=== PATIENT | female | born 2000 | race Caucasian/White ===

== ENCOUNTER → 2021-03-26 15:12 | Outpatient (BNVA) | payer OTHER, SELFPAY | PROVIDERS: Visit Provider Physician Assistant | DX: Z13.89 Encounter for screening for other disorder (principal) | CPT/HCPCS: 99203 ==

== ENCOUNTER 2021-07-09 09:32 | Outpatient (REF) | payer OTHER, SELFPAY ==
[2021-07-09 11:22] LABS: COVID-19 Test Negative (Negative)
== END 2021-07-09 09:33 | disposition home or self-care (01) ==
LOC: HO.LAB 09:32
PROVIDERS: Visit Provider Internal Medicine
DX: Z20.822 Contact with and (suspected) exposure to COVID-19 (principal)
CPT/HCPCS: 87635; C9803

== ENCOUNTER 2021-10-09 10:36 | Outpatient (REF) | payer BC, OTHER, SELFPAY ==
[2021-10-09 11:11] LABS: IDNOW Serial# 08D9AD1C
[2021-10-09 11:12] LABS: COVID-19 Test Negative (Negative)
== END 2021-10-09 10:37 | disposition home or self-care (01) ==
LOC: HO.LAB 10:36
PROVIDERS: Visit Provider Internal Medicine
DX: Z20.822 Contact with and (suspected) exposure to COVID-19 (principal)
CPT/HCPCS: 87635; C9803

== ENCOUNTER 2021-11-11 13:56 | Outpatient (REF) | payer BC, OTHER, SELFPAY ==
[2021-11-11 14:24] LABS: COVID-19 Test Positive (Negative)
== END 2021-11-11 13:57 | disposition home or self-care (01) ==
LOC: HO.LAB 13:56
PROVIDERS: Visit Provider Internal Medicine
DX: Z20.822 Contact with and (suspected) exposure to COVID-19 (principal)
CPT/HCPCS: 87635; C9803

== ENCOUNTER 2022-02-23 15:00 | Outpatient (REF) | payer BC, OTHER, SELFPAY ==
[2022-02-23 16:09] LABS: COVID-19 Test Negative (Negative); IDNOW Serial# 16C4AD1C
== END 2022-02-23 15:01 | disposition home or self-care (01) ==
LOC: HO.LAB 15:00
PROVIDERS: Visit Provider Internal Medicine
DX: Z20.822 Contact with and (suspected) exposure to COVID-19 (principal)
CPT/HCPCS: 87635; C9803

== ENCOUNTER 2022-04-03 12:20 | Emergency (ER) | payer BC, OTHER, SELFPAY ==
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
[2022-04-03 12:23] VITALS: BP 120/70; PULSE 92; RESP 18; TEMP 36.2; O2SAT 99; BMI 19.1
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
== END 2022-04-03 13:56 | disposition home or self-care (01) ==
PROVIDERS: Emergency Provider Emergency Medicine; PCP Family Medicine
DX: M26.621 Arthralgia of right temporomandibular joint (principal); R51.9 Headache, unspecified
CPT/HCPCS: 70486; 99282; 99284

== ENCOUNTER 2022-05-29 12:12 | Emergency (ER) | payer BC, OTHER, SELFPAY ==
--- NOTE | ~2022-05-29 | XR_ITS ---
EXAMINATION: XR CHEST CLINICAL INFORMATION: Cough, fever, flu + COMPARISON: None TECHNIQUE: 2 views of the chest were obtained. FINDINGS: No significant abnormality is noted involving the heart, lungs, mediastinum, bony thorax or soft tissues. XR/XR chest 2V IMPRESSION: Unremarkable examination.
--- NOTE | 2022-05-29 13:23 | ED.URI ---
HPI - URI/Sore Throat General Chief Complaint: Upper Respiratory Symptoms <Negin Marquez CNP - Last Filed: 05/29/22 13:29> Stated Complaint: fever, difficulty breathing, joint pain <Negin Marquez CNP - Last Filed: 05/29/22 13:29> Time Seen by Provider: 05/29/22 13:43 <Negin Marquez CNP - Last Filed: 05/29/22 13:29> Source: patient <Ana Laura Lobo NP - Last Filed: 05/29/22 16:18> Mode of arrival: ambulatory <Ana Laura Lobo NP - Last Filed: 05/29/22 16:18> Limitations: no limitations <Ana Laura Lobo NP - Last Filed: 05/29/22 16:18> History of Present Illness HPI Narrative: Negin is a 21 yo female with a PMHx of seizures, migraines, and asthma who presents to the emergency department today for a CC of fever, chills, fatigue, productive cough, shortness of breath, and nausea which started 4 days ago. She has not tried OTC medications for her symptoms. She says she has recently been around friends and coworkers who have been sick but has been vaccinated against both COVID and flu. She is concerned that her symptoms appear to be worsening and mentions that she has had to use her albuterol inhaler more often than not this week. <Ana Laura Lobo NP - Last Filed: 05/29/22 16:18> MD elicited complaint: fever, cough, sore throat and nasal congestion <Ana Laura Lobo NP - Last Filed: 05/29/22 16:18> Pertinent past history: asthma <Ana Laura Lobo NP - Last Filed: 05/29/22 16:18> Onset (ago): day(s) (4) <Ana Laura Lobo NP - Last Filed: 05/29/22 16:18> Consistency: constant <Ana Laura Lobo NP - Last Filed: 05/29/22 16:18> Severity: moderate <Ana Laura Lobo NP - Last Filed: 05/29/22 16:18> Exacerbating factors: nothing <Ana Laura Lobo NP - Last Filed: 05/29/22 16:18> Relieving factors: nothing <Ana Laura Lobo NP - Last Filed: 05/29/22 16:18> Context: sick contacts <Ana Laura Lobo NP - Last Filed: 05/29/22 16:18> Associated symptoms: fever, chills, myalgias, headache, nasal congestion, sore throat, cough, chest pain, shortness of breath and nausea <Ana Laura Lobo NP - Last Filed: 05/29/22 16:18> Treatments prior to arrival: none <Ana Laura Lobo NP - Last Filed: 05/29/22 16:18> Related Data Home Medications: Previous Rx's Medication Instructions Recorded cyclobenzaprine 10 mg tablet 10 mg PO TID PRN muscle spasm #10 04/03/22 tabs ibuprofen 600 mg tablet 600 mg PO Q8H PRN pain #14 tabs 04/03/22 <Negin Marquez CNP - Last Filed: 05/29/22 13:29> Allergies/Adverse Reactions: Allergies Allergy/AdvReac Type Severity Reaction Status Date / Time amoxicillin Allergy Rash Verified 04/03/22 12:22 latex Allergy Rash Verified 04/03/22 12:22 <Negin Marquez CNP - Last Filed: 05/29/22 13:29> Review of Systems Review of Systems: Yes all other systems are reviewed and are negative <Ana Laura Lobo NP - Last Filed: 05/29/22 16:18> Constitutional: Constitutional: Reports no additional constitutional complaints, Reports body ache(s), Reports chills, Reports fever(s), Reports headache(s) and Denies weakness <Ana Laura Lobo NP - Last Filed: 05/29/22 16:18> Eyes: Eyes: Reports no additional eye complaints and Denies change in vision <Ana Laura Lobo NP - Last Filed: 05/29/22 16:18> ENT: Reports system reviewed and no additional complaints, except as documented, Denies dizziness, Reports headache(s), Reports nasal congestion, Denies nasal discharge and Denies neck pain <Ana Laura Lobo NP - Last Filed: 05/29/22 16:18> Cardiovascular: Cardiovascular: Reports no additional cardiovascular complaints, Denies chest pain, Denies leg edema and Reports dyspnea <Ana Laura Lobo NP - Last Filed: 05/29/22 16:18> Respiratory: Respiratory: Reports no additional respiratory complaints, Denies cough and Reports dyspnea <Ana Laura Lobo NP - Last Filed: 05/29/22 16:18> Gastrointestinal: Gastrointestinal: Reports no additional gastrointestinal complaints, Denies abdominal pain, Denies diarrhea, Reports nausea and Denies vomiting <Ana Laura Lobo ASSOCIATE PROFESSOR [employer] AUTOMATION - Last Filed: 05/29/22 16:18> Genitourinary: Genitourinary: Reports no additional female genitourinary complaints and Denies urinary incontinence <Ana Laura Lobo NP - Last Filed: 05/29/22 16:18> Musculoskeletal: Musculoskeletal: Reports no additional musculoskeletal complaints, Denies back pain, Denies arthralgias, Denies joint swelling, Denies neck pain, Denies numbness and Denies tingling <Ana Laura Lobo NP - Last Filed: 05/29/22 16:18> Integumentary/Breasts: Skin/Breast: Reports system reviewed and no additional complaints, except as docu and Denies rash <Ana Laura Lobo NP - Last Filed: 05/29/22 16:18> Neurologic: Reports system reviewed and no additional complaints, except as documented, Denies Abnormal speech present, Denies dizziness, Reports headache(s), Denies numbness, Denies tingling and Denies weakness <Ana Laura Lobo NP - Last Filed: 05/29/22 16:18> [facility] Past Medical History Attestation statement: The following information was validated with the patient. <Ana Laura Lobo NP - Last Filed: 05/29/22 16:18> [facility] Narrative: PMHx:Migraines, Seziures, Asthma SHx: Nasal surgery, appendectomy Social: Social alcohol use, vapes and smokes marijuana occasionally <Ana Laura Lobo NP - Last Filed: 05/29/22 16:18> Source: old records reviewed and nursing notes reviewed <Ana Laura Lboo NP - Last Filed: 05/29/22 16:18> Social History Social History: Social History Advance Directives: No Advance Directives Information Provided: No <Negin Marquez CNP - Last Filed: 05/29/22 13:29> Physical Exam Vital Signs: Vital Signs: Last Vital Signs Temp 98.6 F 05/29/22 15:25 Pulse 95 05/29/22 15:25 Resp 20 05/29/22 15:25 BP 105/57 L 05/29/22 15:25 Pulse Ox 99 05/29/22 15:25 O2 Del Method 05/29/22 15:25 BMI result Body Mass Index 19.1 <Negin Marquez CNP - Last Filed: 05/29/22 13:29> Vital Signs: Last Vital Signs Temp 98.6 F 05/29/22 15:25 Pulse 95 05/29/22 15:25 Resp 20 05/29/22 15:25 BP 105/57 L 05/29/22 15:25 Pulse Ox 99 05/29/22 15:25 O2 Del Method 05/29/22 15:25 BMI result Body Mass Index 19.1 <Ana Laura Lobo NP - Last Filed: 05/29/22 16:18> Const: General: cooperative, healthy appearing, comfortable and no acute distress <Ana Laura Lobo NP - Last Filed: 05/29/22 16:18> Orientation/consciousness: patient oriented x3 <Ana Laura Lobo NP - Last Filed: 05/29/22 16:18> Limitations: no limitations <Ana Laura Lobo NP - Last Filed: 05/29/22 16:18> HEENT: Head: Yes normal to inspection <Ana Laura Lobo NP - Last Filed: 05/29/22 16:18> Ears: hearing grossly normal bilaterally and TM's normal bilaterally <Ana Laura Lobo NP - Last Filed: 05/29/22 16:18> General nose exam: Normal external nose present <Ana Laura Lobo NP - Last Filed: 05/29/22 16:18> Face and sinus: Yes normal facial exam <Ana Laura Lobo NP - Last Filed: 05/29/22 16:18> Mouth: Normal oral and palatal mucosa present <Ana Laura Lobo NP - Last Filed: 05/29/22 16:18> Throat: Yes posterior oropharynx normal, Yes tonsils normal and Yes uvula midline <Ana Laura Lobo NP - Last Filed: 05/29/22 16:18> Eyes: General: appearance normal, both eyes and all related structures <Ana Laura Lobo NP - Last Filed: 05/29/22 16:18> Pupils: Equal, round and reactive pupils present <Ana Laura Lobo NP - Last Filed: 05/29/22 16:18> Neck: Neck: Yes normal visual inspection, Yes full ROM, Yes no lymphadenopathy and Yes no meningeal signs <Ana Laura Lobo NP - Last Filed: 05/29/22 16:18> Chest: Chest palpation & inspection: normal inspection of the chest <Ana Laura Lobo NP - Last Filed: 05/29/22 16:18> Resp: Effort & Inspection: normal respiratory effort <Ana Laura Lobo NP - Last Filed: 05/29/22 16:18> Auscultation: clear to auscultation bilaterally <Ana Laura Lobo NP - Last Filed: 05/29/22 16:18> Cardio: Rate: regular rate <Ana Laura Lobo NP - Last Filed: 05/29/22 16:18> Rhythm: regular rhythm <Ana Laura Lobo NP - Last Filed: 05/29/22 16:18> Peripheral pulses: Peripheral pulses 2+ throughout <Ana Laura Lobo NP - Last Filed: 05/29/22 16:18> GI: Inspection: Yes normal to inspection <Ana Laura Lobo NP - Last Filed: 05/29/22 16:18> Palpation (GI): Soft to palpation and nontender <Ana Laura Lobo NP - Last Filed: 05/29/22 16:18> Auscultation: normal bowel sounds <Ana Laura Lobo NP - Last Filed: 05/29/22 16:18> Back/Spine/Pelvis: Thoracic/Lumbar Spine: thoracic and lumbar spine normal to inspection <Ana Laura Lobo NP - Last Filed: 05/29/22 16:18> Skin: General skin exam: no rashes or lesions noted <Ana Laura Lobo NP - Last Filed: 05/29/22 16:18> Neuro: General: patient oriented x3, no meningeal signs, no focal motor deficits and normal sensation to monofilament <Ana Laura Lobo ASSOCIATE PROFESSOR [employer] AUTOMATION - Last Filed: 05/29/22 16:18> Cranial nerves: Yes Equal, round and reactive pupils present <Ana Laura Lobo NP - Last Filed: 05/29/22 16:18> Cognition (Neuro): normal cognition <Ana Laura Lobo NP - Last Filed: 05/29/22 16:18> Speech: No Abnormal speech present <Ana Laura Lobo NP - Last Filed: 05/29/22 16:18> Gait exam (Neuro): Normal gait present <Ana Laura Lobo NP - Last Filed: 05/29/22 16:18> Motor exam (neuro): 5/5 motor strength present throughout <Ana Laura Lobo NP - Last Filed: 05/29/22 16:18> Extrem: General: Yes normal to inspection, Yes no pedal edema and Yes no calf tenderness <Ana Laura Lobo NP - Last Filed: 05/29/22 16:18> Course Course Course Narrative: RME: Patient is a 21-year-old female with a past medical history of asthma, migraines, seizures. She reports Symptom onset 4 days ago; shortness of breath feels no relief with albuterol inhaler, fever, nausea without vomiting, lack of appetite, body aches. States coworkers are ill with RSV. PE: LSCTA, no apparent distress. Tachycardic, low grade temperature Plan: COVID-19/influenza/RSV testing, ibuprofen <Negin Marquez CNP - Last Filed: 05/29/22 13:29> Positive Influenza Type A swab Unfortunately now >4 days of symptoms so I do not feel that tamiflu would be helpful. CXR negative for PNA. Recommended supportive care. Reviewed worrisome signs/symptoms with patient and when to seek additional care. Comfortable with dicharge home. <Ana Laura Lobo NP - Last Filed: 05/29/22 16:18> Medications Administered Discontinued Medications Generic Name Dose Route Start Last Admin Trade Name Freq PRN Reason Stop Dose Admin Ibuprofen 600 mg 05/29/22 13:28 05/29/22 13:34 Ibuprofen 600 Mg Tablet PO 05/29/22 13:29 600 mg ONCE ONE Administration <Negin Marquez CNP - Last Filed: 05/29/22 13:29> Medications Administered Discontinued Medications Generic Name Dose Route Start Last Admin Trade Name Freq PRN Reason Stop Dose Admin Ibuprofen 600 mg 05/29/22 13:28 05/29/22 13:34 Ibuprofen 600 Mg Tablet PO 05/29/22 13:29 600 mg ONCE ONE Administration <Ana Laura Lobo NP - Last Filed: 05/29/22 16:18> MDM - URI/Sore Throat MDM Narrative Medical decision making narrative: RME: Patient is a 21-year-old female with a past medical history of asthma, migraines, seizures. She reports Symptom onset 4 days ago with shortness of breath. She feels no relief with albuterol inhaler. She also endorses fever, nausea without vomiting, lack of appetite, body aches. States coworkers are ill with RSV. Perc score: 1, due to HR over 100, elevated heart rate likely due to fever and is not concerning for PE, she does not meet any other positive criteria and PE is unremarkable. PE: LSCTA, no apparent distress. Tachycardic, low grade temperature Plan: COVID-19/influenza/RSV testing, ibuprofen <Ana Laura Lobo NP - Last Filed: 05/29/22 16:18> Medical Records Attestation: I reviewed the patient's medical records. <Ana Laura Lobo NP - Last Filed: 05/29/22 16:18> Lab Data Attestation: I reviewed the patient's lab results. <Ana Laura Lobo NP - Last Filed: 05/29/22 16:18> Labs: Lab Results 05/29/22 Range/Units 13:29 Influenza Type A (PCR) POSITIVE A (Negative) Influenza Type B (PCR) NEGATIVE (Negative) RSV RNA Qual (PCR) NEGATIVE (Negative) SARS-CoV-2 RNA (RT-PCR) NEGATIVE (Negative) <Negin Marquez CNP - Last Filed: 05/29/22 13:29> Lab Results 05/29/22 Range/Units 13:29 Influenza Type A (PCR) POSITIVE A (Negative) Influenza Type B (PCR) NEGATIVE (Negative) RSV RNA Qual (PCR) NEGATIVE (Negative) SARS-CoV-2 RNA (RT-PCR) NEGATIVE (Negative) <Ana Laura Lobo NP - Last Filed: 05/29/22 16:18> Imaging Data Chest x-ray: Attestation: I personally reviewed and interpreted this imaging study as follows: <Ana Laura Lobo NP - Last Filed: 05/29/22 16:18> Radiologist's impression: [place] [id number] XRay Report Signed Patient: Negin Brody MR#: [id number] : 2000 Acct:[id number] Age/Sex: 21 / F ADM Date: 05/29/22 Loc: .ED Attending Dr: Ordering Physician: Ana Laura Lobo NP Date of Service: 05/29/22 Procedure(s): XR chest 2V Accession Number(s): [id number] cc: Ana Laura Lobo NP~ EXAMINATION: XR CHEST CLINICAL INFORMATION: Cough, fever, flu + COMPARISON: None TECHNIQUE: 2 views of the chest were obtained. FINDINGS: No significant abnormality is noted involving the heart, lungs, mediastinum, bony thorax or soft tissues. XR/XR chest 2V IMPRESSION: Unremarkable examination. <Ana Laura Lobo NP - Last Filed: 05/29/22 16:18> Discharge Plan Discharge Clinical Impression: Influenza <Negin Marquez CNP - Last Filed: 05/29/22 13:29> Patient Disposition: Home, Self-Care <Negin Marquez CNP - Last Filed: 05/29/22 13:29> Instructions: Influenza (ED) <Negin Marquez CNP - Last Filed: 05/29/22 13:29> Additional Instructions: Continue inhaler Motrin or tylenol as needed X-ray shows no pneumonia. <Negin Marquez CNP - Last Filed: 05/29/22 13:29> Prescriptions: No Action cyclobenzaprine 10 mg tablet 10 mg PO TID PRN (Reason: muscle spasm) Qty: 10 0RF ibuprofen 600 mg tablet 600 mg PO Q8H PRN (Reason: pain) Qty: 14 0RF <Negin Marquez CNP - Last Filed: 05/29/22 13:29> Referrals: Julián Diaz MD [Primary Care Provider] - 1 week <Negin Marquez CNP - Last Filed: 05/29/22 13:29> Stand Alone Forms: Work/School Release <Negin Marquez CNP - Last Filed: 05/29/22 13:29>
[2022-05-29 13:25] VITALS: BP 111/64; PULSE 115; RESP 18; TEMP 37.9; O2SAT 98; BMI 19.1
[2022-05-29] MEDS: Ibuprofen 600 MG TABLET PO (13:34)
[2022-05-29 14:31] LABS: Influenza A PCR POSITIVE (Negative); Influenza B PCR NEGATIVE (Negative); Resp Syncy Virus RNA Qual PCR NEGATIVE (Negative); SARS COV2 PCR INHOUSE NEGATIVE (Negative)
[2022-05-29 14:53] VITALS: BP 94/55; PULSE 102; RESP 16; TEMP 37.1; O2SAT 98
[2022-05-29 15:25] VITALS: BP 105/57; PULSE 95; RESP 20; TEMP 37; O2SAT 99
== END 2022-05-29 15:45 | disposition home or self-care (01) ==
PROVIDERS: Nurse Practitioner Family; Emergency Provider Emergency Medicine Emergency Medical Services; PCP Family Medicine
DX: J11.1 Influenza due to unidentified influenza virus with other respiratory manifestations (principal); R50.9 Fever, unspecified; Z20.822 Contact with and (suspected) exposure to COVID-19
CPT/HCPCS: 0241U; 71046; 99283

== ENCOUNTER 2022-07-08 11:12 | Outpatient (REF) | payer BC, OTHER, SELFPAY ==
[2022-07-10 18:34] LABS: TS Negative Control Passed; TS Panel A 0; TS Panel B 0; TS Positive Control Passed; TSpotTB Negative (Negative)
== END 2022-07-08 11:13 | disposition home or self-care (01) ==
LOC: HO.LAB 11:12
PROVIDERS: PCP Family Medicine; Visit Provider Family Medicine
DX: Z02.1 Encounter for pre-employment examination (principal); Z11.1 Encounter for screening for respiratory tuberculosis
CPT/HCPCS: 36415; 86481

== ENCOUNTER 2022-08-19 08:04 | Outpatient (REF) | payer BC, OTHER, SELFPAY ==
[2022-08-19 08:17] LABS: MANUAL DIFF FLAG NO
[2022-08-19 08:49] LABS: Basophils Absolute Auto 0.1 X10*3/uL (0.0-0.2); Basophils Percent Auto 1.2 % (0-2); Eosinophils Absolute Auto 0.1 X10*3/uL (0.0-0.4); Eosinophils Percent Auto 1.9 % (0-4); Hematocrit 42.3 % (37.0-47.0); Hemoglobin 13.9 g/dl (12.0-16.0); Imm Gran Abs Auto 0.03 X10*3/uL (0.00-0.03); Imm Gran Pct Auto 0.4 % (0.0-0.4); Lymphocytes Absolute Auto 2.2 X10*3/uL (1.2-4.9); Lymphocytes Percent Auto 32.6 % (20-40); Mean Corpuscular HGB Conc 32.9 g/dl (31.0-35.0); Mean Corpuscular Hemoglobin 29.1 pg (27.0-33.0); Mean Corpuscular Volume 88.7 fL (80.0-98.0); Mean Platelet Volume 10.1 fL (9.4-12.3); Monocytes Absolute Auto 0.4 X10*3/uL (0.1-1.2); Monocytes Percent Auto 6.3 % (2-11); Neutrophils Absolute Auto 3.9 x10*3/uL (2.0-8.3); Neutrophils Percent Auto 57.6 % (45-73); Platelet Count 241 X10*3/uL (160-400); Red Blood Count 4.77 X10*6/uL (4.20-5.50); Red Cell Distribution Width 11.7 % (11.0-16.0); White Blood Count 6.7 X10*3/uL (4.8-10.8)
[2022-08-19 09:26] LABS: Alanine Aminotransferase 13 U/L (0-31); Anion Gap 11 (12-20); Aspartate Amino Transferase 15 U/L (5-31); Blood Urea Nitrogen 10 mg/dL (9-16); Carbon Dioxide 27 mmol/L (22-29); Chloride 106 mmol/L (96-108); Estimated Glomerular Filt Rate > 60; Potassium 4.4 mmol/L (3.3-5.1); Sodium 140 mmol/L (135-145)
[2022-08-19 09:44] LABS: Free T4 (Free Thyroxine) 0.84 ng/dL (0.71-1.85)
== END 2022-08-19 08:05 | disposition home or self-care (01) ==
LOC: HO.LAB 08:04
PROVIDERS: PCP Family Medicine; Visit Provider Family Medicine
DX: E03.9 Hypothyroidism, unspecified (principal)
CPT/HCPCS: 36415; 80051; 82565; 84439; 84450; 84460; 84520; 85025

== ENCOUNTER 2022-08-31 07:19 | Inpatient (IN) | payer BC, OTHER, SELFPAY ==
--- NOTE | ~2022-08-31 | US_ITS ---
EXAMINATION: US PELVIS CLINICAL INFORMATION: Ovarian cysts with free fluid COMPARISON: CT scan performed earlier today TECHNIQUE: Ultrasound of the pelvis is performed using both transabdominal and transvaginal transducers along with Doppler. Transvaginal imaging is performed due to inadequate visualization transabdominally. FINDINGS: Uterus: The uterus is anteverted and measures 6.8 x 2.7 x 4.6 cm. The double wall endometrial thickness is 0.3 mm. The uterus is smooth in contour and has normal myometrial echogenicity. No visible fibroid. Within the endometrial canal, an IUD is present in normal position Adnexa: Both ovaries are visualized. There is normal color flow to the adnexa. There is no ovarian torsion. Free fluid is present in the pelvis similar to that noted on the CT scan Right ovary measures 3.5 x 1.8 x 2.6 cm. Normal follicular cysts are present Left ovary measures 3.5 x 1.7 x 2.4 cm. Normal follicular cysts are present US/US pelvic and transvaginal IMPRESSION: 1. Normal-appearing uterus with IUD in normal position. 2. Free fluid is present in the pelvis similar to that noted on the CT scan. 3. No evidence of ovarian torsion.
--- NOTE | ~2022-08-31 | CT_ITS ---
EXAMINATION: CT ABDOMEN AND PELVIS WITH CONTRAST CLINICAL INFORMATION: Lower abdominal pain. COMPARISON: No similar priors. TECHNIQUE: Multidetector volumetric images were obtained from the superior aspect of the liver through the pubic symphysis following administration 85 mL of Omnipaque 350 intravenous contrast. Sagittal and coronal reformatted images were obtained on the technologist's workstation. Oral contrast: No This CT examination was performed using dose optimization techniques as appropriate, variously including the following: *Automated exposure control *Adjustment of mA and/or kV according to patient size (this includes techniques or standardized protocols for targeted exams where dose is matched to indication/reason for exam; i.e. extremities or head) *Use of iterative reconstruction technique DLP: 319 mGy-cm FINDINGS: LUNG BASES: There is a 4 mm pleural-based nodule in the left lower lobe (4:58 post (. No focal consolidation or pleural effusion. LIVER, GALLBLADDER, AND BILIARY TREE: The liver is normal in size, shape, and attenuation. No focal hepatic lesion or biliary ductal dilatation is present. The gallbladder is unremarkable with no evidence of radiopaque gallstones, gallbladder wall thickening, or obvious pericholecystic inflammatory changes. PANCREAS: Unremarkable. SPLEEN: Unremarkable. ADRENAL GLANDS: Unremarkable. KIDNEYS AND URETERS: The kidneys are normal in size, shape, and attenuation. No hydronephrosis, hydroureter, or calculi seen. No perinephric stranding. BLADDER: Unremarkable. GASTROINTESTINAL TRACT: The stomach and the small bowel are nondilated. There is colonic wall thickening involving the descending and sigmoid colon with a focal intussusception versus large stagnated stool ball in the distal descending colon measuring approximately 5 cm (5:22). There is moderate colonic stool content throughout the colon. There is small to moderate volume of free fluid in the abdomen or pelvis. ABDOMINAL WALL: No significant hernia is appreciated. LYMPH NODES: Evaluation is limited due to paucity of abdominal fat. No bulky lymphadenopathy noted. VASCULAR: Abdominal aorta is of normal diameter. Main portal vein is patent. PELVIC VISCERA: IUD centered in the endometrial canal. OSSEOUS STRUCTURES: No acute or aggressive appearing osseous abnormalities. CT/CT abdomen pelvis w IV con IMPRESSION: Colonic wall thickening involving the descending and sigmoid colon with pericolonic inflammatory changes and small to moderate volume of free fluid, most suggestive of acute colitis. In the distal descending colon there is a focal likely transient intussusception versus large stool ball, attention on follow-up recommended. Incidentally noted 4 mm pleural-based nodule in the left lower lobe of uncertain significance in a patient of this age, possibly related with a pulmonary lymph node. In patients younger than age 35, standard Fleischner Society recommendations for incidental pulmonary nodule follow-up do not apply as nodules in this age group are most likely to be infectious/inflammatory. Recommend clinical correlation with any risk factors to assess if follow-up of this nodule is clinically warranted. This result was discussed with Oziel Santamaria at 08/31/2022 3:22 PM and it was ascertained that the content of the report was understood at the time of direct communication.
[2022-08-31 07:33] VITALS: BP 127/85; PULSE 82; RESP 18; TEMP 36.8; O2SAT 100
[2022-08-31 07:34] VITALS: BMI 19.1
--- NOTE | 2022-08-31 08:13 | ED.ABDPAIN ---
HPI - Abdominal Pain General Chief Complaint: Abdominal Pain Stated Complaint: abd pain Time Seen by Provider: 08/31/22 07:50 Source: patient Limitations: no limitations History of Present Illness HPI narrative: Patient describes 2 days of nausea vomiting and diarrhea. Last episode of vomiting and diarrhea both this morning. The diarrhea is watery and frequent. No prior history of similar issues. No sick contacts in the house that she is aware of. Some chills. Abdominal pain which she describes as intermittent severe cramping. No urinary symptoms. No blood in the emesis or the stool. Related Data Previous Rx's Medication Instructions Recorded cyclobenzaprine 10 mg tablet 10 mg PO TID PRN muscle spasm #10 04/03/22 tabs ibuprofen 600 mg tablet 600 mg PO Q8H PRN pain #14 tabs 04/03/22 ondansetron 4 mg disintegrating 4 mg PO Q8H PRN nausea and 08/31/22 tablet vomiting #10 tabs Allergies Allergy/AdvReac Type Severity Reaction Status Date / Time amoxicillin Allergy Rash Verified 04/03/22 12:22 latex Allergy Rash Verified 04/03/22 12:22 Review of Systems Comments: Chills Comments: No chest pain Comments: No respiratory symptoms Comments: Pain nausea vomiting diarrhea as described Comments: No rash Comments: No focal weakness PMFSH Social History Social History Alcohol intake: never Smoked in Last 30 Days: No Use of substances other than those prescribed or required for medical reasons: Yes Substance Use Type: Marijuana Advance Directives: No Advance Directives Information Provided: No Physical Exam ED Vital Signs: Vital Signs - 24 hr 08/31/22 07:33 08/31/22 08:47 Temperature 98.2 F 98.5 F Pulse Rate 82 63 Respiratory Rate 18 19 Blood Pressure 127/85 110/70 Pulse Oximetry 100 100 Oxygen Delivery Method Room Air Room Air BMI result Body Mass Index 19.1 Const Other: Awake alert. No acute distress. HENMT Other: Mucosa dry Resp Other: Clear and equal bilaterally Cardio Other: Normal GI Other: Soft. Tenderness mostly lower abdomen. No guarding or rebound. Normal bowel sounds. Nondistended. Skin Other: Warm pink and dry Medical Decision Making Medical Decision Making MDM Narrative: Patient with abdominal pain in the setting of nausea vomiting and diarrhea. Differential would include pancreatitis, hepatitis, gastritis, colitis. She appears clinically dehydrated as well. Likely gastroenteritis. Will start with IV normal saline and Toradol and Zofran. Will reassess after lab work is back. CT scan if not improving or labs are abnormal. 10:54. Patient is feeling better and tolerating p.o. liquids without difficulty. Stable for discharge home with a final diagnosis of gastroenteritis and dehydration Lab Data 08/31/22 08:21 08/31/22 08:21 Labs: Lab Results 08/31/22 08/31/22 08/31/22 Range/Units 07:38 07:38 08:21 WBC 9.4 (4.8-10.8) X10*3/uL RBC 5.44 (4.20-5.50) X10*6/uL Hgb 16.4 H (12.0-16.0) g/dl Hct 48.2 H (37.0-47.0) % MCV 88.6 (80.0-98.0) fL MCH 30.1 (27.0-33.0) pg MCHC 34.0 (31.0-35.0) g/dl RDW 11.6 (11.0-16.0) % Plt Count 225 (160-400) X10*3/uL MPV 10.3 (9.4-12.3) fL Immature Gran % (Auto) 0.3 (0.0-0.4) % Neut % (Auto) 78.9 H (45-73) % Lymph % (Auto) 14.8 L (20-40) % [place] % (Auto) 4.2 (2-11) % Eos % (Auto) 1.4 (0-4) % Baso % (Auto) 0.4 (0-2) % Lymph # (Auto) 1.4 (1.2-4.9) X10*3/uL [place] # (Auto) 0.4 (0.1-1.2) X10*3/uL Eos # (Auto) 0.1 (0.0-0.4) X10*3/uL Baso # (Auto) 0.0 (0.0-0.2) X10*3/uL Abs Immat Gran (auto) 0.03 (0.00-0.03) X10*3/uL Absolute Neuts (auto) 7.4 (2.0-8.3) x10*3/uL Absolute Nucleated RBC 0.000 (0.0-0.012) X10*3/uL Nucleated RBC % (auto) 0.0 (0.0-0.2) /100WBC Sodium (135-145) mmol/L Potassium (3.3-5.1) mmol/L Chloride (96-108) mmol/L Carbon Dioxide (22-29) mmol/L Anion Gap (12-20) BUN (9-16) mg/dL Creatinine (0.5-1.4) mg/dL Estim Creat Clear Calc Estimated GFR Random Glucose (60-115) mg/dL Calcium (8.4-10.2) mg/dL Total Bilirubin (0.0-1.0) mg/dL AST (5-31) U/L ALT (0-31) U/L Alkaline Phosphatase (39-117) U/L Total Protein (6.5-8.0) g/dL Albumin (3.5-5.0) g/dL COVID-19 (DOTTY) Negative (Negative) COVID-19 Clin Com See Note Influenza Type A (MARCELO) Negative (Negative) Influenza Type B (MARCELO) Negative (Negative) Influenza A & B Note See Note 08/31/22 Range/Units 08:21 WBC (4.8-10.8) X10*3/uL RBC (4.20-5.50) X10*6/uL Hgb (12.0-16.0) g/dl Hct (37.0-47.0) % MCV (80.0-98.0) fL MCH (27.0-33.0) pg MCHC (31.0-35.0) g/dl RDW (11.0-16.0) % Plt Count (160-400) X10*3/uL MPV (9.4-12.3) fL Immature Gran % (Auto) (0.0-0.4) % Neut % (Auto) (45-73) % Lymph % (Auto) (20-40) % [place] % (Auto) (2-11) % Eos % (Auto) (0-4) % Baso % (Auto) (0-2) % Lymph # (Auto) (1.2-4.9) X10*3/uL [place] # (Auto) (0.1-1.2) X10*3/uL Eos # (Auto) (0.0-0.4) X10*3/uL Baso # (Auto) (0.0-0.2) X10*3/uL Abs Immat Gran (auto) (0.00-0.03) X10*3/uL Absolute Neuts (auto) (2.0-8.3) x10*3/uL Absolute Nucleated RBC (0.0-0.012) X10*3/uL Nucleated RBC % (auto) (0.0-0.2) /100WBC Sodium 142 (135-145) mmol/L Potassium 4.0 (3.3-5.1) mmol/L Chloride 108 (96-108) mmol/L Carbon Dioxide 30 H (22-29) mmol/L Anion Gap 8 L (12-20) BUN 10 (9-16) mg/dL Creatinine 0.80 (0.5-1.4) mg/dL Estim Creat Clear Calc 89.3 Estimated GFR > 60 Random Glucose 97 (60-115) mg/dL Calcium 9.3 (8.4-10.2) mg/dL Total Bilirubin 0.9 (0.0-1.0) mg/dL AST 12 (5-31) U/L ALT 10 (0-31) U/L Alkaline Phosphatase 49 (39-117) U/L Total Protein 6.8 (6.5-8.0) g/dL Albumin 4.2 (3.5-5.0) g/dL COVID-19 (DOTTY) (Negative) COVID-19 Clin Com Influenza Type A (MARCELO) (Negative) Influenza Type B (MARCELO) (Negative) Influenza A & B Note Medications Administered Discontinued Medications Generic Name Dose Route Start Last Admin Trade Name Freq PRN Reason Stop Dose Admin Sodium Chloride 1,000 mls @ 999 mls/hr 08/31/22 08:15 08/31/22 10:08 Ns IV 08/31/22 09:15 Infused .Q1H1M KOFFI Infusion Ketorolac Tromethamine 30 mg 08/31/22 08:07 08/31/22 08:26 Ketorolac Tromethamine 15 Mg/Ml Vial IVPUSH 08/31/22 08:08 30 mg ONCE ONE Administration Lorazepam 1 mg 08/31/22 09:06 08/31/22 09:22 Lorazepam 2 Mg/Ml Vial IVPUSH 08/31/22 09:07 1 mg ONCE ONE Administration Ondansetron HCl 4 mg 08/31/22 08:07 08/31/22 08:26 Ondansetron Hcl 4 Mg/2 Ml Vial IVPUSH 08/31/22 08:08 4 mg ONCE ONE Administration Discharge Plan Discharge Clinical Impression: Gastroenteritis, Acute dehydration Patient Disposition: Home, Self-Care Instructions: Dehydration (ED), Gastroenteritis (ED) Prescriptions: New ondansetron 4 mg tablet,disintegrating 4 mg PO Q8H PRN (Reason: nausea and vomiting) Qty: 10 0RF No Action cyclobenzaprine 10 mg tablet 10 mg PO TID PRN (Reason: muscle spasm) Qty: 10 0RF ibuprofen 600 mg tablet 600 mg PO Q8H PRN (Reason: pain) Qty: 14 0RF
[2022-08-31 08:15] LABS: COVID-19 Test Negative (Negative); IDNOW Serial# 16C4AD1C; IDNOW Serial# 9DB6401D; Influenza A Negative (Negative); Influenza B2 Negative (Negative)
[2022-08-31] MEDS: 0.9 % Sodium Chloride 1,000 ML 999 ML IV (08:25)
[2022-08-31 08:26] LABS: MANUAL DIFF FLAG NO
[2022-08-31] MEDS: ondansetron HCL 4 MG/2 ML VIAL IVPUSH (08:26)
[2022-08-31] MEDS: Ketorolac Tromethamine 15 MG/ML VIAL 30 MG IVPUSH (08:26)
[2022-08-31 08:36] LABS: Basophils Percent Auto 0.4 % (0-2); Eosinophils Absolute Auto 0.1 X10*3/uL (0.0-0.4); Eosinophils Percent Auto 1.4 % (0-4); Hematocrit 48.2 % (37.0-47.0); Hemoglobin 16.4 g/dl (12.0-16.0); Imm Gran Abs Auto 0.03 X10*3/uL (0.00-0.03); Imm Gran Pct Auto 0.3 % (0.0-0.4); Lymphocytes Absolute Auto 1.4 X10*3/uL (1.2-4.9); Lymphocytes Percent Auto 14.8 % (20-40); Mean Corpuscular Hemoglobin 30.1 pg (27.0-33.0); Mean Corpuscular Volume 88.6 fL (80.0-98.0); Mean Platelet Volume 10.3 fL (9.4-12.3); Monocytes Absolute Auto 0.4 X10*3/uL (0.1-1.2); Monocytes Percent Auto 4.2 % (2-11); Neutrophils Absolute Auto 7.4 x10*3/uL (2.0-8.3); Neutrophils Percent Auto 78.9 % (45-73); Platelet Count 225 X10*3/uL (160-400); Red Blood Count 5.44 X10*6/uL (4.20-5.50); Red Cell Distribution Width 11.6 % (11.0-16.0); White Blood Count 9.4 X10*3/uL (4.8-10.8)
[2022-08-31 08:43] LABS: Alanine Aminotransferase 10 U/L (0-31); Albumin Level 4.2 g/dL (3.5-5.0); Alkaline Phosphatase 49 U/L (39-117); Anion Gap 8 (12-20); Aspartate Amino Transferase 12 U/L (5-31); Bilirubin Total 0.9 mg/dL (0.0-1.0); Blood Urea Nitrogen 10 mg/dL (9-16); Calcium 9.3 mg/dL (8.4-10.2); Carbon Dioxide 30 mmol/L (22-29); Chloride 108 mmol/L (96-108); Creatinine Clr Calc Pharmacy 89.3; Estimated Glomerular Filt Rate > 60; Glucose Random 97 mg/dL (60-115); Sodium 142 mmol/L (135-145); Total Protein 6.8 g/dL (6.5-8.0)
[2022-08-31 08:47] VITALS: BP 110/70; PULSE 63; RESP 19; TEMP 36.9; O2SAT 100
[2022-08-31] MEDS: LORazepam 2 MG/ML VIAL 1 MG IVPUSH (09:22)
--- NOTE | 2022-08-31 10:11 | PC.NURSE ---
PO trial started. will observe for N/V
[2022-08-31 12:53] LABS: HCG Quantitative < 2 mIU/mL
[2022-08-31] MEDS: iohexoL 350 MG/ML 100 ML INFUS..BTL IV (13:09)
--- NOTE | 2022-08-31 16:24 | PC.NURSE ---
able to keep food and drink down. denies nausea
[2022-08-31] MEDS: LORazepam 2 MG/ML VIAL 0.5 MG IVPUSH (17:22)
--- NOTE | 2022-08-31 18:42 | PM.HPGS ---
History of Present Illness History of Present Illness Date of Service: 09/01/22 Chief complaint: Abdominal pain Narrative: Negin Brody is a 22 year old female with severe anxiety, here in the ER because of lower abdominal pain. She says this started about 2 days ago. she describes is constant. She says that this is both on the left pelvic area and right pelvic area. She also says that she had some nausea and describes some her stools. She says she passes flatus as well. She denies any previous similar symptoms in the past. She denies any fever or chills. She denies any urinary complaints. Review of Systems Constitutional: Constitutional: Denies chills and Denies fever(s) Cardiovascular: Cardiovascular: Denies chest pain, Denies dyspnea and Denies dyspnea on exertion Respiratory: Respiratory: Denies cough, Denies dyspnea and Denies dyspnea on exertion Gastrointestinal: Gastrointestinal: Denies hematochezia and Denies change in bowel habits Genitourinary: Genitourinary: Denies hematuria Musculoskeletal: Musculoskeletal: Denies back pain and Denies limited range of motion Neurologic: Denies focal weakness and Denies convulsions Psychiatric: Psychiatric: Reports anxiety, Denies depression and Denies mood swings PMFSH Past Medical History Medical History (Updated 09/01/22 @ 15:57 by Romaine Fuentes MD) Abdominal pain Anxiety Migraine Seizure disorder Social History Social History Alcohol intake: never Smoked in Last 30 Days: No Use of substances other than those prescribed or required for medical reasons: Yes Substance Use Type: Marijuana Advance Directives: No Advance Directives Information Provided: No service: No Meds Allergies Allergy/AdvReac Type Severity Reaction Status Date / Time amoxicillin Allergy Rash Verified 04/03/22 12:22 latex Allergy Rash Verified 04/03/22 12:22 Home Medications Medication Instructions Recorded Confirmed Last Taken Type albuterol sulfate 90 mcg/actuation 2 puff inhalation Q4-6H PRN 08/31/22 08/31/22 Unknown History aerosol inhaler (ProAir HFA) Shortness Of Breath Or Wheezing amitriptyline 25 mg tablet 1 tab PO BEDTIME 08/31/22 08/31/22 Unknown History bupropion HCl 150 mg 24 hr tablet, 1 tab PO DAILY 08/31/22 08/31/22 Unknown History extended release diazepam 2 mg tablet 2 mg PO DAILY PRN Anxiety 08/31/22 08/31/22 Unknown History glycopyrrolate 2 mg tablet 1 tab PO QAM 08/31/22 08/31/22 Unknown History lamotrigine 300 mg tablet,extended 1 tab PO BID 08/31/22 08/31/22 Unknown History release 24 hr verapamil 180 mg tablet,extended 1 tab PO BEDTIME 08/31/22 08/31/22 Unknown History release Physical Exam Vital Signs: Vital Signs: Last Vital Signs Temp 98.5 F 08/31/22 08:47 Pulse 63 08/31/22 08:47 Resp 19 08/31/22 08:47 BP 110/70 08/31/22 08:47 Pulse Ox 100 08/31/22 08:47 O2 Del Method 08/31/22 08:47 BMI result Body Mass Index 19.1 Const: Other: appears very anxious and emotional, crying General: comfortable and no acute distress Orientation/consciousness: patient oriented x3 Neck: Neck: Yes no lymphadenopathy Resp: Auscultation: clear to auscultation bilaterally Cardio: Rhythm: regular rhythm GI: Other: tender mostly on both pelvic areas, no guarding rebound, no distension Inspection: No distended Palpation (GI): Soft to palpation, nontender and no guarding Neuro: General: patient oriented x3 Results Results Labs: Short CBC 08/31/22 Range/Units 08:21 WBC 9.4 (4.8-10.8) X10*3/uL Hgb 16.4 H (12.0-16.0) g/dl Hct 48.2 H (37.0-47.0) % Plt Count 225 (160-400) X10*3/uL BMP 08/31/22 08:21 Sodium 142 Potassium 4.0 Chloride 108 Carbon Dioxide 30 H BUN 10 Creatinine 0.80 Calcium 9.3 Liver Function 08/31/22 Range/Units 08:21 Total Bilirubin 0.9 (0.0-1.0) mg/dL AST 12 (5-31) U/L ALT 10 (0-31) U/L Alkaline Phosphatase 49 (39-117) U/L Albumin 4.2 (3.5-5.0) g/dL Additional studies: Laboratory Results WBC 9.4 X10*3/uL (4.8-10.8) 08/31/22 08:21 RBC 5.44 X10*6/uL (4.20-5.50) 08/31/22 08:21 Hgb 16.4 g/dl (12.0-16.0) H 08/31/22 08:21 Hct 48.2 % (37.0-47.0) H 08/31/22 08:21 MCV 88.6 fL (80.0-98.0) 08/31/22 08:21 MCH 30.1 pg (27.0-33.0) 08/31/22 08:21 MCHC 34.0 g/dl (31.0-35.0) 08/31/22 08:21 RDW 11.6 % (11.0-16.0) 08/31/22 08:21 Plt Count 225 X10*3/uL (160-400) 08/31/22 08:21 MPV 10.3 fL (9.4-12.3) 08/31/22 08:21 Immature Gran % (Auto) 0.3 % (0.0-0.4) 08/31/22 08:21 Neut % (Auto) 78.9 % (45-73) H 08/31/22 08:21 Lymph % (Auto) 14.8 % (20-40) L 08/31/22 08:21 [place] % (Auto) 4.2 % (2-11) 08/31/22 08:21 Eos % (Auto) 1.4 % (0-4) 08/31/22 08:21 Baso % (Auto) 0.4 % (0-2) 08/31/22 08:21 Lymph # (Auto) 1.4 X10*3/uL (1.2-4.9) 08/31/22 08:21 [place] # (Auto) 0.4 X10*3/uL (0.1-1.2) 08/31/22 08:21 Eos # (Auto) 0.1 X10*3/uL (0.0-0.4) 08/31/22 08:21 Baso # (Auto) 0.0 X10*3/uL (0.0-0.2) 08/31/22 08:21 Abs Immat Gran (auto) 0.03 X10*3/uL (0.00-0.03) 08/31/22 08:21 Absolute Neuts (auto) 7.4 x10*3/uL (2.0-8.3) 08/31/22 08:21 Absolute Nucleated RBC 0.000 X10*3/uL (0.0-0.012) 08/31/22 08:21 Nucleated RBC % (auto) 0.0 /100WBC (0.0-0.2) 08/31/22 08:21 Sodium 142 mmol/L (135-145) 08/31/22 08:21 Potassium 4.0 mmol/L (3.3-5.1) 08/31/22 08:21 Chloride 108 mmol/L (96-108) 08/31/22 08:21 Carbon Dioxide 30 mmol/L (22-29) H 08/31/22 08:21 Anion Gap 8 (12-20) L 08/31/22 08:21 BUN 10 mg/dL (9-16) 08/31/22 08:21 Creatinine 0.80 mg/dL (0.5-1.4) 08/31/22 08:21 Estim Creat Clear Calc 89.3 08/31/22 08:21 Estimated GFR > 60 08/31/22 08:21 Random Glucose 97 mg/dL (60-115) 08/31/22 08:21 Calcium 9.3 mg/dL (8.4-10.2) 08/31/22 08:21 Total Bilirubin 0.9 mg/dL (0.0-1.0) 08/31/22 08:21 AST 12 U/L (5-31) 08/31/22 08:21 ALT 10 U/L (0-31) 08/31/22 08:21 Alkaline Phosphatase 49 U/L (39-117) 08/31/22 08:21 Total Protein 6.8 g/dL (6.5-8.0) 08/31/22 08:21 Albumin 4.2 g/dL (3.5-5.0) 08/31/22 08:21 Beta HCG, Quant < 2 mIU/mL 08/31/22 08:21 COVID-19 (DOTTY) Negative (Negative) 08/31/22 07:38 COVID-19 Clin Com See Note 02/27/23 07:38 Influenza Type A (MARCELO) Negative (Negative) 08/31/22 07:38 Influenza Type B (MARCELO) Negative (Negative) 08/31/22 07:38 Influenza A & B Note See Note 08/31/22 07:38 Impressions Abdomen/Pelvis CT 08/31/22 13:18 IMPRESSION: Colonic wall thickening involving the descending and sigmoid colon with pericolonic inflammatory changes and small to moderate volume of free fluid, most suggestive of acute colitis. In the distal descending colon there is a focal likely transient intussusception versus large stool ball, attention on follow-up recommended. Incidentally noted 4 mm pleural-based nodule in the left lower lobe of uncertain significance in a patient of this age, possibly related with a pulmonary lymph node. In patients younger than age 35, standard Fleischner Society recommendations for incidental pulmonary nodule follow-up do not apply as nodules in this age group are most likely to be infectious/inflammatory. Recommend clinical correlation with any risk factors to assess if follow-up of this nodule is clinically warranted. This result was discussed with Oziel Santamaria at 08/31/2022 3:22 PM and it was ascertained that the content of the report was understood at the time of direct communication. Assessment and Plan (1) Abdominal pain: Status: Acute She describes abdominal pain, mostly on both lower pelvic areas. She also says she has some water stools as well as some nausea. I have reviewed her CAT scan with the radiologist. She has a lot of stools in the colon. Official report was read as possible intussusception but when reviewed with the radiologist, and this is unlikely. There is no evidence of any obstruction. The patient has a benign exam although does have some free fluid. There is also question of left sided colitis based on some mild thickening of the wall. I am going to admit her therefore so that she can be monitored in view of the above official report. She was extremely anxious while in the ER as well. I will put her back on all her anxiety medications well is her seizure medications. She will be kept on clear liquids. I have ordered for a pelvic ultrasound as well in the ER as there is suspicion of adnexal says with possible rupture causing this pelvic fluid. Otherwise, there is no other inflammatory process noted. Her basic labs ar unremarkable. Sh says her last seizure episode was maybe over 5 years ago. I explained to her the above plan. Time Spent With Patient Time: Total time managing care of this patient today ____ minutes. Quality Stroke Does the patient have a stroke diagnosis?: No VTE Prior VTE?: No VTE Risk Level:: Medical - low VTE Device Contraindication: Treatment Not Indicated VTE Drug Contraindication: Treatment Not Indicated Procedures Date of Service Date of Service: 08/31/22
[2022-08-31] MEDS: 0.9 % Sodium Chloride 1,000 ML 80 ML IVCONT (19:55)
--- NOTE | 2022-08-31 20:04 | PHA.MEDREC ---
Pharmacy Consult ? Medication Reconciliation Pharmacy has completed the medication reconciliation. Patient is good historian and knows medications she is on. Med rec completed off of claim history and conversation at patient bedside.
[2022-08-31] MEDS: Amitriptyline HCl 25 MG TABLET PO (22:09)
[2022-08-31] MEDS: Morphine Sulfate 4 MG/ML CARTRIDGE 2 MG IVPUSH (22:13)
--- NOTE | 2022-08-31 22:14 | PC.NURSE ---
Medicated per sep, Notified Harpreet Bailon
[2022-08-31 23:23] VITALS: BP 97/55; PULSE 67; RESP 15; O2SAT 97
[2022-08-31] MEDS: VerapamiL HCL SR 180 MG TABLET.ER PO (23:47)
[2022-09-01] MEDS: 0.9 % Sodium Chloride Flush 3 ML SYRINGE IVFLUSH (01:06)
--- NOTE | 2022-09-01 02:03 | PC.NURSE ---
Pt sleeping at the bedside in no apparent distress. Breaths are even and unlabored with equal chest rises. Will continue to monitor.
[2022-09-01 06:51] LABS: Hematocrit 38.5 % (37.0-47.0); Hemoglobin 13.3 g/dl (12.0-16.0); Mean Corpuscular HGB Conc 34.5 g/dl (31.0-35.0); Mean Corpuscular Volume 86.7 fL (80.0-98.0); Mean Platelet Volume 9.5 fL (9.4-12.3); Platelet Count 178 X10*3/uL (160-400); Red Blood Count 4.44 X10*6/uL (4.20-5.50); Red Cell Distribution Width 11.6 % (11.0-16.0); White Blood Count 7.2 X10*3/uL (4.8-10.8)
[2022-09-01 07:20] LABS: Anion Gap 10 (12-20); Blood Urea Nitrogen 7 mg/dL (9-16); Carbon Dioxide 24 mmol/L (22-29); Chloride 112 mmol/L (96-108); Creatinine Clr Calc Pharmacy 97.9; Estimated Glomerular Filt Rate > 60; Glucose Random 88 mg/dL (60-115); Potassium 3.6 mmol/L (3.3-5.1); Sodium 142 mmol/L (135-145)
--- NOTE | 2022-09-01 07:25 | PC.NURSE ---
assumed care of patient, pt resting comfortably in bed, VSS, awaiting inpt bed
[2022-09-01] MEDS: 0.9 % Sodium Chloride 1,000 ML 80 ML IVCONT ×2 (07:54→21:18)
[2022-09-01] MEDS: buPROPion HCl XL 150 MG TAB.ER.24H PO (07:54)
--- NOTE | 2022-09-01 08:29 | PM.PNGS ---
Subjective Subjective Date of Service: 09/02/22 Interval history: hungry and wants to eat Says she feels better pain much improved no nausea or vomiting Physical Exam Vital Signs: Vital Signs: Last Vital Signs Temp 98.5 F 08/31/22 08:47 Pulse 67 08/31/22 23:23 Resp 15 08/31/22 23:23 BP 97/55 L 08/31/22 23:23 Pulse Ox 97 08/31/22 23:23 O2 Del Method 08/31/22 23:23 BMI result Body Mass Index 19.1 Const: Other: looks well General: comfortable and no acute distress Resp: Effort & Inspection: normal respiratory effort Cardio: Rate: regular rate GI: Palpation (GI): Soft to palpation, not firm, Tenderness to palpation present (GI) ( minimal tenderness to deep palpation, mostly on the pelvic area) and no guarding Objective Data Active Medications Amitriptyline HCl (Amitriptyline Hcl 25 Mg Tablet) 25 mg PO BEDTIME [facility] Last Admin: 08/31/22 22:09 Dose: 25 mg Documented By: SHAY Bupropion HCl (Bupropion Hcl Xl 150 Mg Tab.Er.24h) 150 mg PO DAILY [facility] Last Admin: 09/01/22 07:54 Dose: 150 mg Documented By: GINA-WENDY Glycopyrrolate (Glycopyrrolate 1 Mg Tablet) 2 mg PO DAILY [facility] Last Admin: 09/01/22 07:54 Dose: Not Given Documented By: GINA-WENDY Non-Admin Reason: Patient Refused Sodium Chloride (Ns) 1,000 mls @ 80 mls/hr IVCONT .[id number] [facility] Last Admin: 09/01/22 07:54 Dose: 80 mls/hr Documented By: GINA-WENDY Morphine Sulfate (Morphine Sulfate 4 Mg/Ml Cartridge) 2 mg IVPUSH Q3H PRN; Protocol PRN Reason: Pain, Severe (Pain Scale 7-10) Last Admin: 08/31/22 22:13 Dose: 2 mg Documented By: SHAY Non-Formulary Medication (Lamotrigine) 1 tab PO BID [facility] Ondansetron HCl (Ondansetron Hcl 4 Mg/2 Ml Vial) 4 mg IVPUSH Q8H PRN PRN Reason: Nausea and Vomiting Oxycodone HCl (Oxycodone Hcl Immed Release 5 Mg Tablet) 5 mg PO Q6H PRN PRN Reason: Pain, Moderate (Pain Scale 4-6 Sodium Chloride (0.9 % Sodium Chloride Flush 3 Ml Syringe) 3 ml IVFLUSH QSHIFT [facility] Last Admin: 09/01/22 07:54 Dose: Not Given Documented By: ROSLYN Non-Admin Reason: IV Running Verapamil HCl (Verapamil Hcl Sr 180 Mg Tablet.Er) 180 mg PO BEDTIME [facility]; Protocol Last Admin: 08/31/22 23:47 Dose: 180 mg Documented By: MILA Labs 09/01/22 06:41 09/01/22 06:41 Labs: Laboratory Results - last 24 hr 08/31/22 08/31/22 09/01/22 08:21 08:21 06:41 MCV 88.6 86.7 MCH 30.1 30.0 MCHC 34.0 34.5 RDW 11.6 11.6 Plt Count 225 178 MPV 10.3 9.5 Immature Gran % (Auto) 0.3 Neut % (Auto) 78.9 H Lymph % (Auto) 14.8 L Kimball % (Auto) 4.2 Eos % (Auto) 1.4 Baso % (Auto) 0.4 Lymph # (Auto) 1.4 Kimball # (Auto) 0.4 Eos # (Auto) 0.1 Baso # (Auto) 0.0 Abs Immat Gran (auto) 0.03 Absolute Neuts (auto) 7.4 Absolute Nucleated RBC 0.000 0.000 Nucleated RBC % (auto) 0.0 0.0 Anion Gap 8 L Estim Creat Clear Calc 89.3 Estimated GFR > 60 Random Glucose 97 Calcium 9.3 Total Bilirubin 0.9 AST 12 ALT 10 Alkaline Phosphatase 49 Total Protein 6.8 Albumin 4.2 Beta HCG, Quant < 2 09/01/22 06:41 MCV MCH MCHC RDW Plt Count MPV Immature Gran % (Auto) Neut % (Auto) Lymph % (Auto) Kimball % (Auto) Eos % (Auto) Baso % (Auto) Lymph # (Auto) Kimball # (Auto) Eos # (Auto) Baso # (Auto) Abs Immat Gran (auto) Absolute Neuts (auto) Absolute Nucleated RBC Nucleated RBC % (auto) Anion Gap 10 L Estim Creat Clear Calc 97.9 Estimated GFR > 60 Random Glucose 88 Calcium 8.0 L D Total Bilirubin AST ALT Alkaline Phosphatase Total Protein Albumin Beta HCG, Quant Procedures Date of Service Date of Service: 09/01/22 Progress Note: A&P Assessment and plan (1) Abdominal pain: Status: Acute Assessment and Plan: feels much better abdomen remained soft and benign hungry and wants to eat WBC normal pelvic ultrasound does not show any pathology except for free fluid will start on regular diet Time Spent With Patient Time: Total time managing care of this patient today ____ minutes. Quality Stroke Does the patient have a stroke diagnosis?: No VTE Prior VTE?: No VTE Risk Level:: Medical - low VTE Device Contraindication: N/A - Device Ordered VTE Drug Contraindication: Treatment Not Indicated
[2022-09-01] MEDS: oxyCODONE HCl Immed Release 5 MG TABLET PO ×2 (12:07→20:49)
--- NOTE | 2022-09-01 13:52 | MHC.CM.PN ---
pt is independent cm intervention is not indicated has own ride home is [employer] home no sercvcies
[2022-09-01 15:36] VITALS: BP 110/74; PULSE 75; RESP 14; TEMP 36.6; O2SAT 100
--- NOTE | 2022-09-01 15:49 | P.EN_ITS ---
Event Note Date of Service: 09/01/22 Event Note: Seen on afternoon rounds Still anxious and emotional after talking to her mom in [place] Says that she is alone by herself here in [place] Abdomen soft and benign, nondistended She does state that she still has some pain No vomiting Passing flatus I have started her on a trial of regular diet and will see how she does overnight Labs unremarkable this morning I discussed the above with her mother over the phone Time Spent With Patient Time: Total time managing care of this patient today ____ minutes.
[2022-09-01] MEDS: Morphine Sulfate 4 MG/ML CARTRIDGE 2 MG IVPUSH (17:48)
[2022-09-01 21:12] VITALS: BP 120/80; PULSE 88; RESP 15; TEMP 36.6; O2SAT 99
[2022-09-01] MEDS: lamoTRIgine 100 MG TABLET 300 MG PO (21:30)
[2022-09-01] MEDS: VerapamiL HCL SR 180 MG TABLET.ER PO (23:07)
[2022-09-01] MEDS: Amitriptyline HCl 25 MG TABLET PO (23:07)
[2022-09-01 23:30] VITALS: BP 107/62; PULSE 81; RESP 17; O2SAT 99
--- NOTE | 2022-09-02 02:06 | PC.NURSE ---
Assumed care of pt. at 1900. Pt. quietly resting in bed at that time. Pt. IV became dislodged and was removed and subsequently replaced by this RN. IVF are running at 80ml/hour. Pt. became anxious as her mom is in [place] and can't be with her in the hospital. Pt. able to talk to mom and relax in bed. Pt. currently sleeping with no distress noted. Respirations are even and unlabored.
[2022-09-02 03:39] VITALS: BP 87/50; PULSE 76; RESP 16; O2SAT 96
[2022-09-02 04:30] VITALS: BP 94/49
--- NOTE | 2022-09-02 05:23 | PC.NURSE ---
Pt. reporting discomfort and pain in the new IV site. IV was removed. Spoke with hospitalist and it is ok to d/c fluids as pt. is tolerating liquids PO.
[2022-09-02] MEDS: buPROPion HCl XL 150 MG TAB.ER.24H PO (08:42)
[2022-09-02] MEDS: lamoTRIgine 100 MG TABLET 300 MG PO ×2 (08:42→20:25)
[2022-09-02 09:29] VITALS: RESP 16
[2022-09-02] MEDS: Morphine Sulfate 4 MG/ML CARTRIDGE 2 MG IVPUSH (09:29)
[2022-09-02] MEDS: ondansetron HCL 4 MG/2 ML VIAL IVPUSH (09:29)
[2022-09-02] MEDS: 0.9 % Sodium Chloride 1,000 ML 80 ML IVCONT (09:37)
[2022-09-02 10:11] VITALS: BP 114/69; PULSE 83; RESP 20; TEMP 36.9; O2SAT 99
[2022-09-02] MEDS: oxyCODONE HCl Immed Release 5 MG TABLET PO ×2 (10:17→18:20)
--- NOTE | 2022-09-02 10:29 | PM.PNGS ---
Subjective Subjective Date of Service: 09/02/22 Interval history: Patient says she feels better Says she had a good night Still has some pain mostly in the lower abdomen but much improved No nausea or vomiting No diarrhea Says she says she has been eating crackers and does not like hospital food Physical Exam Vital Signs: Vital Signs: Last Vital Signs Temp 98.4 F 09/02/22 10:11 Pulse 83 09/02/22 10:11 Resp 20 09/02/22 10:11 BP 114/69 09/02/22 10:11 Pulse Ox 99 09/02/22 10:11 O2 Del Method 09/02/22 10:11 BMI result Body Mass Index 19.1 Const: General: comfortable and no acute distress Resp: Effort & Inspection: normal respiratory effort Cardio: Rate: regular rate GI: Other: Mild tenderness on lower abdomen Inspection: No distended Palpation (GI): Soft to palpation, not firm, no guarding and not rigid Objective Data Active Medications Amitriptyline HCl (Amitriptyline Hcl 25 Mg Tablet) 25 mg PO BEDTIME [facility] Last Admin: 09/01/22 23:07 Dose: 25 mg Documented By: DALTON Bupropion HCl (Bupropion Hcl Xl 150 Mg Tab.Er.24h) 150 mg PO DAILY [facility] Last Admin: 09/02/22 08:42 Dose: 150 mg Documented By: NELLI Glycopyrrolate (Glycopyrrolate 1 Mg Tablet) 2 mg PO DAILY [facility] Last Admin: 09/02/22 10:00 Dose: Not Given Documented By: NELLI Non-Admin Reason: Patient Refused Sodium Chloride (Ns) 1,000 mls @ 80 mls/hr IVCONT .[id number] [facility] Last Admin: 09/02/22 09:37 Dose: 80 mls/hr Documented By: NELLI Lamotrigine (Lamotrigine 100 Mg Tablet) 300 mg PO BID [facility] Last Admin: 09/02/22 08:42 Dose: 300 mg Documented By: NELLI Morphine Sulfate (Morphine Sulfate 4 Mg/Ml Cartridge) 2 mg IVPUSH Q3H PRN; Protocol PRN Reason: Pain, Severe (Pain Scale 7-10) Last Admin: 09/02/22 09:29 Dose: 2 mg Documented By: NELLI Ondansetron HCl (Ondansetron Hcl 4 Mg/2 Ml Vial) 4 mg IVPUSH Q8H PRN PRN Reason: Nausea and Vomiting Last Admin: 09/02/22 09:29 Dose: 4 mg Documented By: NELLI Oxycodone HCl (Oxycodone Hcl Immed Release 5 Mg Tablet) 5 mg PO Q6H PRN PRN Reason: Pain, Moderate (Pain Scale 4-6 Last Admin: 09/02/22 10:17 Dose: 5 mg Documented By: MAU Sodium Chloride (0.9 % Sodium Chloride Flush 3 Ml Syringe) 3 ml IVFLUSH QSHIFT [facility] Last Admin: 09/02/22 07:19 Dose: Not Given Documented By: NELLI Non-Admin Reason: Med Not Available Verapamil HCl (Verapamil Hcl Sr 180 Mg Tablet.Er) 180 mg PO BEDTIME [facility]; Protocol Last Admin: 09/01/22 23:07 Dose: 180 mg Documented By: NOEERT Labs 09/01/22 06:41 09/01/22 06:41 Procedures Date of Service Date of Service: 09/02/22 Progress Note: A&P Assessment and plan (1) Abdominal pain: Status: Acute Assessment and Plan: Clinically much improved Looks well Abdomen soft and benign No fever or leukocytosis Etiology uncertain - may have colitis based on CT scan findings, gastroenteritis No obstruction Encouraged to increase oral intake She may be discharged if she tolerates regular diet and continues to feel better She is comfortable with the plan - she says she is waiting for her mother to come and bring her food from outside Time Spent With Patient Time: Total time managing care of this patient today ____ minutes. Quality Stroke Does the patient have a stroke diagnosis?: No VTE Prior VTE?: No VTE Risk Level:: Medical - low VTE Device Contraindication: Treatment Not Indicated VTE Drug Contraindication: Treatment Not Indicated
[2022-09-02 15:01] VITALS: BP 100/58; PULSE 90; RESP 20; TEMP 36.1; O2SAT 100
--- NOTE | 2022-09-02 15:53 | PM.EVENT ---
Event Note Date of Service: 09/02/22 Event Note: She had food from outside as brought by her mother She tolerated this although she does state that she was a little nauseous after that Abdomen remained soft and benign She does not feel she is ready to be discharged I will see how she is tonight re-evaluate in the morning Looks well overall Mother is at bedside Time Spent With Patient Time: Total time managing care of this patient today ____ minutes.
--- NOTE | 2022-09-02 18:26 | PC.NURSE ---
pt is requesting note for work on the day of discharge
[2022-09-02 19:11] VITALS: BP 109/58; PULSE 77; RESP 20; TEMP 36.3
[2022-09-02] MEDS: VerapamiL HCL SR 180 MG TABLET.ER PO (20:25)
[2022-09-02] MEDS: Amitriptyline HCl 25 MG TABLET PO (20:25)
[2022-09-03 00:13] VITALS: BP 98/54; PULSE 80; RESP 18; TEMP 36.8; O2SAT 99
[2022-09-03 04:10] VITALS: BP 94/56; PULSE 84; RESP 18; TEMP 36.8; O2SAT 99
[2022-09-03 07:15] VITALS: BP 98/55; PULSE 90; RESP 14; TEMP 36.8; O2SAT 100
--- NOTE | 2022-09-03 08:24 | PM.PNGS ---
Subjective Subjective Date of Service: 09/03/22 Interval history: Feels much better Denies abdominal pain Tolerating regular diet well Says she is ready to go home Physical Exam Vital Signs: Vital Signs: Last Vital Signs Temp 98.3 F 09/03/22 07:15 Pulse 90 09/03/22 07:15 Resp 14 09/03/22 07:15 BP 98/55 L 09/03/22 07:15 Pulse Ox 100 09/03/22 07:15 O2 Del Method 09/03/22 07:15 BMI result Body Mass Index 19.1 Const: General: comfortable and no acute distress Resp: Effort & Inspection: normal respiratory effort Cardio: Rate: regular rate GI: Palpation (GI): Soft to palpation, not firm, nontender and no guarding Objective Data Active Medications Amitriptyline HCl (Amitriptyline Hcl 25 Mg Tablet) 25 mg PO BEDTIME [facility] Last Admin: 09/02/22 20:25 Dose: 25 mg Documented By: MIKAYLA Bupropion HCl (Bupropion Hcl Xl 150 Mg Tab.Er.24h) 150 mg PO DAILY [facility] Last Admin: 09/02/22 08:42 Dose: 150 mg Documented By: NELLI Glycopyrrolate (Glycopyrrolate 1 Mg Tablet) 2 mg PO DAILY [facility] Last Admin: 09/02/22 10:00 Dose: Not Given Documented By: NELLI Non-Admin Reason: Patient Refused Lamotrigine (Lamotrigine 100 Mg Tablet) 300 mg PO BID [facility] Last Admin: 09/02/22 20:25 Dose: 300 mg Documented By: MIKAYLA Morphine Sulfate (Morphine Sulfate 4 Mg/Ml Cartridge) 2 mg IVPUSH Q3H PRN; Protocol PRN Reason: Pain, Severe (Pain Scale 7-10) Last Admin: 09/02/22 09:29 Dose: 2 mg Documented By: NELLI Ondansetron HCl (Ondansetron Hcl 4 Mg/2 Ml Vial) 4 mg IVPUSH Q8H PRN PRN Reason: Nausea and Vomiting Last Admin: 09/02/22 09:29 Dose: 4 mg Documented By: NELLI Oxycodone HCl (Oxycodone Hcl Immed Release 5 Mg Tablet) 5 mg PO Q6H PRN PRN Reason: Pain, Moderate (Pain Scale 4-6 Last Admin: 09/02/22 18:20 Dose: 5 mg Documented By: MIKAYLA Sodium Chloride (0.9 % Sodium Chloride Flush 3 Ml Syringe) 3 ml IVFLUSH QSHIFT [facility] Last Admin: 09/03/22 00:34 Dose: Not Given Documented By: GALEN Non-Admin Reason: No Access Verapamil HCl (Verapamil Hcl Sr 180 Mg Tablet.Er) 180 mg PO BEDTIME [facility]; Protocol Last Admin: 09/02/22 20:25 Dose: 180 mg Documented By: MIKAYLA Labs 09/01/22 06:41 09/01/22 06:41 Procedures Date of Service Date of Service: 09/03/22 Progress Note: A&P Assessment and plan (1) Abdominal pain: Status: Acute Assessment and Plan: Symptoms have resolved completely Abdomen soft and benign Etiology of episode still uncertain - possible gastroenteritis, colitis Now with good GI function Okay to DC home Instructed to follow-up with her primary care physician as she has other complaints of joint pains Time Spent With Patient Time: Total time managing care of this patient today ____ minutes. Quality Stroke Does the patient have a stroke diagnosis?: No VTE Prior VTE?: No VTE Risk Level:: Medical - low VTE Device Contraindication: Treatment Not Indicated VTE Drug Contraindication: Treatment Not Indicated
[2022-09-03] MEDS: lamoTRIgine 100 MG TABLET 300 MG PO (08:49)
[2022-09-03] MEDS: Glycopyrrolate 1 MG TABLET 2 MG PO (08:49)
[2022-09-03] MEDS: buPROPion HCl XL 150 MG TAB.ER.24H PO (08:49)
--- NOTE | 2022-09-03 08:56 | MHC.CM.PN ---
DP: PT HAS BEEN MEDICALLY CLEARED FOR DC HOME, NO SERVICES. RN AWARE. PT HAS OWN RIDE HOME
--- NOTE | 2022-09-03 11:32 | PC.NURSE ---
Patient alert and oriented x 4, denies having any pain/ discomfort, VSS. Patient discharge home @ 1130, accompanied by her mother, pt refused transport via w/c to [facility], ambulated independently.
--- NOTE | 2022-09-03 13:52 | P.CDIM_ITS ---
PROVIDER RESPONSE TEXT: To clarify, the appropriate diagnosis supported by the clinical indicators: No nutritional deficiency QUERY TEXT: PHYSICIAN'S DOCUMENTATION REQUEST Date of Query: 09/02/2022 12:32 PM EST Patient Name: Negin Brody Admit Date: 08/31/2022 Dear Romaine Fuentes, A review of the medical record indicates additional documentation may be needed. Please review below and update the documentation accordingly. Clinical indicators: BMI: 19.2 Height: 5ft 5in Weight: 52.2kg Per RN shift assessments: Patient eating poorly because of decreased appetite. Other risk factors: -Poor intake noted >4 days with patient only consuming 0-25% of meals -Persistent nausea and vomiting noted To ensure the quality of the medical record, based on the above information , could you please verify which of the following diagnoses best reflects the patient's nutritional status. Malnutrition is/was present and is a likely/suspected clinical diagnosis (please include severity - i .e. mild, moderate, severe, etc.) No nutritional deficiency Other (explain) Clinically unable to determine (explain) Thank you, Molly Silvestre, MS, RN, CCRN Use of terms such as suspected, likely, concern for, or probable (associated with a specific diagnosi s that is being evaluated, monitored, or treated as if it exists) are acceptable and can be coded in the inpatient se tting, when documented at the time of discharge. Please use your independent medical judgment in providing your response. THIS QUERY IS PART OF THE PERMANENT MEDICAL RECORD
--- NOTE | 2022-09-04 15:28 | PM.DS ---
DS: Providers Provider Date of Service: 09/03/22 Date of admission: 08/31/22 18:50 Primary care physician: Julián Diaz MD DS: Diagnosis Discharge Diagnosis (1) Abdominal pain: Status: Acute DS: Summary Hospital Course Hospital Course: 22-year-old female fitted because abdominal pain. She describes diffuse abdominal pain but mostly on the pelvic area. She had a CAT scan showing what appeared to be some thickening of the colon without other inflammatory changes. She had some free fluid in the pelvis. There was a question of possible intussusception in the left colon but review of this with the radiologist reveals that this is unlikely. She was kept on clear liquids. She was given ptotic via IV for pain. She had remained afebrile and did not have any leukocytosis. Her abdominal pain was slow to solve but she she did have some significant improvement on the succeeding days of admission. She started to tolerate regular diet without any significant nausea or vomiting. Her pain had resolved and she was therefore discharged much improved on 09/03/2022. She never had any fever during admission. Her Abdominal exam was consistently benign. Differentials for her pain include gastroenteritis and colitis. Time Spent with Patient Time attestation: Total time managing care of this patient today ____ minutes. Discharge coordination time: Less than 30 minutes Quality: Safe Use of Opioids Does Pt have an Active Cancer Diagnosis on the Problem List?: No Quality: Stroke Does the patient have a stroke diagnosis?: No Physical Exam Vital Signs: Vital Signs: Last Vital Signs Temp 98.3 F 09/03/22 07:15 Pulse 90 09/03/22 07:15 Resp 14 09/03/22 07:15 BP 98/55 L 09/03/22 07:15 Pulse Ox 100 09/03/22 07:15 O2 Del Method 09/03/22 07:15 BMI result Body Mass Index 19.1 Const: General: comfortable and no acute distress Orientation/consciousness: patient oriented x3 Neck: Neck: Yes no lymphadenopathy Resp: Auscultation: clear to auscultation bilaterally Cardio: Rhythm: regular rhythm GI: Palpation (GI): Soft to palpation, nontender and no guarding Neuro: General: patient oriented x3 Discharge Plan Discharge Anticipated Discharge Date/Time: 09/03/22 08:27 Patient Disposition: Home, Self-Care Discharge Diagnosis: Abdominal pain Referrals: Julián Diaz MD [Primary Care Provider] - 1 Week Discharge Medications: Continued verapamil 180 mg tablet extended release 1 tab PO BEDTIME amitriptyline 25 mg tablet 1 tab PO BEDTIME bupropion HCl 150 mg tablet extended release 24 hr 1 tab PO DAILY lamotrigine 300 mg tablet extended release 24hr 1 tab PO BID glycopyrrolate 2 mg tablet 1 tab PO QAM albuterol sulfate [ProAir HFA] 90 mcg/actuation Hfa Aerosol Inhaler 2 puff INHALATION Q4-6H PRN (Reason: Shortness Of Breath Or Wheezing) diazepam 2 mg Tablet 2 mg PO DAILY PRN (Reason: Anxiety) Discharge Orders: Discharge Order (Routine); Ordered 09/03/22 Ordered By: Romaine Fuentes Activity on Discharge: As tolerated Stand Alone Forms: Patient Portal Discharge page Care Plan Goals: Follow-up with primary care physician Health Concerns: Recent episode of abdominal pain, etiology uncertain Has known seizure disorder and anxiety Plan of Treatment: Continue home meds Follow-up with primary care physician Assessment: Doing well Patient Instructions: Dehydration (ED), Gastroenteritis (ED) Discharge Date/Time: 09/03/22 12:08
== END 2022-09-03 12:08 | disposition home or self-care (01) | DRG 249 ==
LOC: HO.ED 10:55 → HO.EDOVER 19:05 → HO.IMC 09-02 09:17
PROVIDERS: Admitting Provider Surgery; Emergency Provider Emergency Medicine; PCP Family Medicine; Visit Provider Surgery
DX: K52.9 Noninfective gastroenteritis and colitis, unspecified (principal); E86.0 Dehydration; G40.909 Epilepsy, unspecified, not intractable, without status epilepticus; F41.9 Anxiety disorder, unspecified; G43.909 Migraine, unspecified, not intractable, without status migrainosus; Z20.822 Contact with and (suspected) exposure to COVID-19; Z87.891 Personal history of nicotine dependence; Z91.040 Latex allergy status; Z88.0 Allergy status to penicillin; Z79.899 Other long term (current) drug therapy
CPT/HCPCS: 36415; 74177; 76830; 76856; 80048; 80053; 84702; 85025; 85027; 87502; 87635; 96361; 96374; 96375; 96376; 99222; 99285; J1885; J2060; J2270; J2405; J2550; Q9967

== ENCOUNTER 2022-09-14 07:45 | Outpatient (REF) | payer BC, OTHER, SELFPAY ==
[2022-09-14 08:53] LABS: MANUAL DIFF FLAG NO
[2022-09-14 09:13] LABS: Basophils Absolute Auto 0.1 X10*3/uL (0.0-0.2); Eosinophils Absolute Auto 0.1 X10*3/uL (0.0-0.4); Eosinophils Percent Auto 1.3 % (0-4); Hematocrit 44.5 % (37.0-47.0); Imm Gran Abs Auto 0.03 X10*3/uL (0.00-0.03); Imm Gran Pct Auto 0.4 % (0.0-0.4); Lymphocytes Absolute Auto 2.6 X10*3/uL (1.2-4.9); Lymphocytes Percent Auto 32.4 % (20-40); Mean Corpuscular HGB Conc 33.7 g/dl (31.0-35.0); Mean Corpuscular Hemoglobin 29.9 pg (27.0-33.0); Mean Corpuscular Volume 88.6 fL (80.0-98.0); Mean Platelet Volume 9.9 fL (9.4-12.3); Monocytes Absolute Auto 0.7 X10*3/uL (0.1-1.2); Monocytes Percent Auto 8.4 % (2-11); Neutrophils Absolute Auto 4.5 x10*3/uL (2.0-8.3); Neutrophils Percent Auto 56.5 % (45-73); Platelet Count 216 X10*3/uL (160-400); Red Blood Count 5.02 X10*6/uL (4.20-5.50); Red Cell Distribution Width 11.3 % (11.0-16.0)
[2022-09-14 09:59] LABS: Erythrocyte Sedimentation Rate 2 MM/HR (0-20)
[2022-09-14 10:18] LABS: C Reactive Protein < 0.04 mg/dL (< or = 0.50)
== END 2022-09-14 07:46 | disposition home or self-care (01) ==
LOC: HO.LAB 07:45
PROVIDERS: PCP Family Medicine; Referring Provider Family Medicine; Visit Provider Physician Assistant
DX: R10.9 Unspecified abdominal pain (principal); K52.9 Noninfective gastroenteritis and colitis, unspecified; Z09 Encounter for follow-up examination after completed treatment for conditions other than malignant neoplasm; Z79.899 Other long term (current) drug therapy
CPT/HCPCS: 36415; 85025; 85652; 86140

== ENCOUNTER 2022-10-28 09:00 | Day surgery (SDC) | payer BC, OTHER, SELFPAY ==
--- NOTE | 2022-10-27 09:50 | P.CONAN_ITS ---
Documented by User: Ginger Thomason NP 10/27/22 09:51 HPI - Anesthesia Eval Consult details Narrative: 22yo F for Upper Endoscopy and Colonoscopy PMF Active Problems Active Problems: All Active Problems (Updated 09/14/22 @ 09:06 by Cammy Cagle PA-C) Hospital discharge follow-up (Acute) Abdominal pain (Acute) Migraine (Acute) Anxiety (Acute) Seizure disorder (Acute) Past Medical History Medical History (Updated 10/28/22 @ 09:09 by Becki Magaña) Abdominal pain Anxiety Asthma Migraine Seizure disorder Surgical History Surgical History (Updated 10/28/22 @ 09:10 by Becki Magaña) History of nasal septoplasty Hx of appendectomy Hx of colonoscopy Hx of tonsillectomy [place] teeth extracted Social History Social History Household Members: None Housing: Apartment Alcohol intake: never Patient Tobacco Use Status: Never used Tobacco e-Cigarette/Vaping Use: Former Use Use of substances other than those prescribed or required for medical reasons: Yes Substance Use Type: Marijuana Substance Use Frequency: Daily Are you DNR?: No Advance Directives: No Advance Directives Information Provided: Yes service: No Meds Allergies Allergy/AdvReac Type Severity Reaction Status Date / Time amoxicillin Allergy Rash Verified 10/28/22 09:10 latex Allergy Rash Verified 10/28/22 09:10 pineapple Allergy Rash Verified 10/28/22 09:10 shellfish derived Allergy Angioedema Verified 10/28/22 09:10 Home Medications Medication Instructions Recorded Confirmed Last Taken Type albuterol sulfate 90 mcg/actuation 2 puff inhalation Q4-6H PRN 08/31/22 10/28/22 Unknown History aerosol inhaler (ProAir HFA) Shortness Of Breath Or Wheezing amitriptyline 25 mg tablet 1 tab PO BEDTIME 08/31/22 10/28/22 Unknown History bupropion HCl 150 mg 24 hr tablet, 1 tab PO DAILY 08/31/22 10/28/22 Unknown History extended release diazepam 2 mg tablet 2 mg PO DAILY PRN Anxiety 08/31/22 10/28/22 Unknown History glycopyrrolate 2 mg tablet 1 tab PO QAM 08/31/22 10/28/22 Unknown History lamotrigine 300 mg tablet,extended 1 tab PO BID 08/31/22 10/28/22 Unknown History release 24 hr verapamil 180 mg tablet,extended 1 tab PO BEDTIME 08/31/22 10/28/22 Unknown History release Exam Exam Date and Time: October 27, 2022 0950 Pertinent Lab Results Pertinent Lab Results: Laboratory Tests 09/01/22 09/14/22 06:41 08:52 WBC 8.0 Hgb 15.0 Hct 44.5 Plt Count 216 Sodium 142 Potassium 3.6 Chloride 112 H Carbon Dioxide 24 BUN 7 L Creatinine 0.73 Assessment and Plan Assessment Anesthesia Assessment: Chart Reviewed Documented by User: Bee Green MD 10/28/22 09:42 PMF Past Medical History Medical History (Updated 10/28/22 @ 09:09 by Becki Magaña) Abdominal pain Anxiety Asthma Migraine Seizure disorder Family History Family history of problems with anesthesia: No Surgical History Surgical History (Updated 10/28/22 @ 09:10 by Becki Magaña) History of nasal septoplasty Hx of appendectomy Hx of colonoscopy Hx of tonsillectomy [place] teeth extracted History of Problems with Anesthesia: No Social History Social History Household Members: None Housing: Apartment Alcohol intake: never Patient Tobacco Use Status: Never used Tobacco e-Cigarette/Vaping Use: Former Use Use of substances other than those prescribed or required for medical reasons: Yes Substance Use Type: Marijuana Substance Use Frequency: Daily Are you DNR?: No Advance Directives: No Advance Directives Information Provided: Yes service: No Meds Allergies Allergy/AdvReac Type Severity Reaction Status Date / Time amoxicillin Allergy Rash Verified 10/28/22 09:10 latex Allergy Rash Verified 10/28/22 09:10 pineapple Allergy Rash Verified 10/28/22 09:10 shellfish derived Allergy Angioedema Verified 10/28/22 09:10 Home Medications Medication Instructions Recorded Confirmed Last Taken Type albuterol sulfate 90 mcg/actuation 2 puff inhalation Q4-6H PRN 08/31/22 10/28/22 Unknown History aerosol inhaler (ProAir HFA) Shortness Of Breath Or Wheezing amitriptyline 25 mg tablet 1 tab PO BEDTIME 08/31/22 10/28/22 Unknown History bupropion HCl 150 mg 24 hr tablet, 1 tab PO DAILY 08/31/22 10/28/22 Unknown History extended release diazepam 2 mg tablet 2 mg PO DAILY PRN Anxiety 08/31/22 10/28/22 Unknown History glycopyrrolate 2 mg tablet 1 tab PO QAM 08/31/22 10/28/22 Unknown History lamotrigine 300 mg tablet,extended 1 tab PO BID 08/31/22 10/28/22 Unknown History release 24 hr verapamil 180 mg tablet,extended 1 tab PO BEDTIME 08/31/22 10/28/22 Unknown History release Exam Airway Mallampati Class: II (top front 2 implants) TM Dist: >3cm Neck ROM: Full Heart: rrr Lungs: cta Assessment and Plan Assessment Anesthesia Assessment: Anesthesia Plan Discussed Final Anesthetic Review Family History of Problems with Anesthesia: No History of Problems with Anesthesia: No NPO: Yes ASA Class: II Final Preanesthetic Review: No Changes in Pt Med Stat, Meds/Allgs Chart Reviewed and Consent Obtained/Reviewed Patient Risk: Intermediate Procedure Risk: Intermediate Anesthetic Plan Anesthetic Plan: MAC: (pt didnt take sz meds, usually does not take morning am dose prior to procedures) Disposition: Standard PACU
[2022-10-28 09:12] VITALS: BMI 19.6
[2022-10-28 09:28] VITALS: BP 106/68; PULSE 69; RESP 16; TEMP 36.7; O2SAT 100
[2022-10-28 09:35] LABS: UPreg QC Valid YES; Urine Pregnancy NEGATIVE (NEGATIVE)
[2022-10-28] MEDS: Lactated Ringers 1,000 ML 100 ML IVCONT (09:55)
--- NOTE | 2022-10-28 10:13 | PC.NURSE ---
PATIENT SMOKED MARIJUANA THIS AM WELL FINISHED 2 CUPS OF HER PREP AT [address] KRISHNAN MADE AWARE. NO NEW ORDERS AT THIS TIME. OKAY TO PROCEED WITH PROCEDURE.
--- NOTE | 2022-10-28 10:15 | P.HPSUR_ITS ---
Pre-Procedural Eval Section A Date of Service: 10/28/22 Section B Chief Complaint: abdominal pain, colitis Relevant Family History (Specify if Yes): No Relevant Social History: Other (specify) Present Medications: see Short Stay Collaborative assessment Medical History: Significant History (Abdominal pain Anxiety Asthma Migraine Seizure disorder) History of Previous Operations: Relevant previous surgery/procedure and date(s) (History of nasal septoplasty Hx of appendectomy Hx of colonoscopy Hx of tonsillectomy [place] teeth extracted) Allergies: Allergies Allergy/AdvReac Type Severity Reaction Status Date / Time amoxicillin Allergy Rash Verified 10/28/22 09:10 latex Allergy Rash Verified 10/28/22 09:10 pineapple Allergy Rash Verified 10/28/22 09:10 shellfish derived Allergy Angioedema Verified 10/28/22 09:10 Review of Systems Sugical H&P ROS: Negative: Constitution, Cardiovascular, Respiratory, Neurological, Psychiatric, Hem-Onc, Allergic/Immunologic, Gastrointestinal, Genitourinary, Musculoskeletal, Integumentary, Endocrine and Eyes/Ea rs/Nose/Throat Exam Surgical H&P Exam: Normal: HEENT, Normal: Heart, Normal: Lungs, Normal: Extremities, Normal: Abdomen, Normal: Skin and Normal: Neurological Plan Diagnosis/Plan: Unchanged I have reviewed the history and physical and performed a pertinent physical examination on my patient. No changes have occurred unless specified. Time Spent With Patient Time: Total time managing care of this patient today ____ minutes.
--- NOTE | 2022-10-28 10:22 | P.OP_ITS ---
Operative Note Operative Note Date of Service: 10/28/22 Narrative: Operative Information Procedure Description: EGD, Colonoscopy Indication: abdominal pain and colitis Anesthesia: MAC FLEXIBLE TRANSORAL UPPER GASTROINTESTINAL ENDOSCOPY AND COLONOSCOPY PROCEDURE NOTE UPPER ENDOSCOPY Consent: Indications for the procedure and potential complications of bleeding, perforation, reaction to medications and missed diagnosis were discussed with the patient and informed consent was obtained. Instrument: Olympus GIF H 190 J mid size upper endoscope Monitoring: Vital signs and clinical assessment, continuous EKG monitoring, Pulse oximetry, Carbon Dioxide monitoring and blood pressure monitoring were done throughout the procedure. Procedure: The patient was placed in the left lateral decubitis position and pre-procedure medications were administered and a bite block was placed. The endoscope was inserted into the mouth and advanced under direct vision to the third part of duodenum. A careful inspection was made as the upper endoscope was withdrawn including a retroflexed examination of the proximal stomach; Findings and interventions are described below. Findings: Larynx:normal Esophagus: GE junction at 40 cm, diaphragm hiatus at 40 cm, small linear erosions at GEJ and bogginess at GEJ, bx taken as well as from distal and proximal esophagus Stomach: Patchy erythema. Biopsies were obtained. Grade 2 flap valve on retroflexed examination of the cardia. Duodenum: Normal bulb and descending duodenum, bx taken Intervention: Biopsies as noted above COLONOSCOPY Instrument: Olympus variable stiffness pediatric scope 190L Colonoscopy Monitoring: Vital signs and clinical assessment, continuous EKG monitoring, Pulse oximetry, Carbon Dioxide monitoring and blood pressure monitoring were done throughout the procedure. Colon withdrawal time was 10 minutes. Procedure: The patient was placed in the left lateral decubitis position and pre-procedure medications were administered. After a digital rectal examination of the ano-rectum, the video colonoscope was inserted into the rectum and advanced through the colon to the cecum/TI. The colonoscope was slowly withdrawn in a retrograde panoramic fashion and the colon mucosa was carefully examined including a retroflexed view of the rectum. Findings and interventions are described below. Procedure Difficulty: easy Findings: Terminal Ileum-normal, bx taken random bx taken from right, transverse, left and rectum Cecum:normal Ascending Colon: normal Transverse Colon -normal Descending Colon:normal Sigmoid Colon: normal Rectum: Retroflexion with small internal hemorrhoids, grade I Anorectum - normal Colon preparation: [place] Bowel Preparation Scale Right colon; 3 Transverse colon: 3 Left colon; 3 (0 = Unprepared colon segment with mucosa not seen due to solid stool that cannot be cleared. 1 = Portion of mucosa of the colon segment seen, but other areas of the colon segment not well seen due to staining, residual stool and/or opaque liquid. 2 = Minor amount of residual staining, small fragments of stool and/or opaque liquid, but mucosa of colon segment seen well. 3 = Entire mucosa of colon segment seen well with no residual staining, small fragments of stool or opaque liquid) Impression and Post Procedure Diagnosis: Endoscopy Findings: erosive esophagitis gastritis Colonoscopy Findings: internal hemorrhoids Plan: Await Pathology results Repeat Colonoscopy aged 45 years old or earlier if clinically indicated High fiber diet leaflet avoid straining at stool, epsom salts and sitz bath, anusol supps or cream trial of PPI if not taking Above findings were reviewed with the patient and relevant handouts were provided if indicated.
[2022-10-28 11:07] VITALS: BP 108/43; PULSE 60; RESP 20; TEMP 36.1; O2SAT 100
[2022-10-28 11:22] VITALS: BP 109/59; PULSE 57; RESP 20; TEMP 36.5; O2SAT 100
== END 2022-10-28 12:07 | disposition home or self-care (01) ==
PROVIDERS: Nurse Practitioner; PCP Family Medicine; Visit Provider Internal Medicine Gastroenterology
PROC: (CPT 45380; principal; 2022-10-28 10:40)
DX: R10.30 Lower abdominal pain, unspecified (principal); K64.0 First degree hemorrhoids; K52.9 Noninfective gastroenteritis and colitis, unspecified; K29.50 Unspecified chronic gastritis without bleeding; K20.80 Other esophagitis without bleeding; K25.9 Gastric ulcer, unspecified as acute or chronic, without hemorrhage or perforation; K21.9 Gastro-esophageal reflux disease without esophagitis; K44.9 Diaphragmatic hernia without obstruction or gangrene; F41.9 Anxiety disorder, unspecified; J45.909 Unspecified asthma, uncomplicated; G40.909 Epilepsy, unspecified, not intractable, without status epilepticus; G43.109 Migraine with aura, not intractable, without status migrainosus; Z79.899 Other long term (current) drug therapy; Z88.1 Allergy status to other antibiotic agents; Z91.040 Latex allergy status; Z87.891 Personal history of nicotine dependence; F12.90 Cannabis use, unspecified, uncomplicated
CPT/HCPCS: 45380; 43239; 81025; 88305; 88313; 88341; 88342; J2250

== ENCOUNTER → 2022-11-05 08:12 | Outpatient (BNVA) | payer BC, OTHER, SELFPAY | PROVIDERS: PCP Family Medicine; Visit Provider Physician Assistant ==

== ENCOUNTER 2023-01-27 10:18 | Outpatient (REF) | payer BC, OTHER, SELFPAY ==
[2023-01-29 13:33] LABS: Transglutaminase Ab IgG <1.0 U/mL
== END 2023-01-27 10:19 | disposition home or self-care (01) ==
LOC: HO.10HDL 10:18
PROVIDERS: Visit Provider Family Medicine
DX: E11.9 Type 2 diabetes mellitus without complications (principal)
CPT/HCPCS: 36415; 86364